=== PATIENT | female | born 1985 | race Caucasian/White ===

== ENCOUNTER → 2018-05-08 14:14 | Outpatient (CLI) | payer OTHER, SELFPAY ==
[2018-05-08 14:40] LABS: Add Manual Diff / Slide Review NO; Appearance Urine UA CLEAR; Basophils Percent Auto 0.5 % (0-2); Bilirubin Urine UA NEGATIVE (NEGATIVE); Color Urine UA YELLOW; Eosinophils Percent Auto 0.8 % (2-4); Glucose Urine UA NEGATIVE (Normal); Hematocrit 40.7 % (36-46); Hemoglobin 13.9 g/dL (12.0-16.0); Ketones Urine UA TRACE (NEGATIVE); Leukocyte Esterase Urine UA NEGATIVE (NEGATIVE); Lymphocytes Percent Auto 29.7 % (25-40); Mean Corpuscular HGB Conc 34.2 % (30-36); Mean Corpuscular Hemoglobin 32.3 PG (26-34); Mean Corpuscular Volume 94.6 fL (80-100); Monocytes Percent Auto 6.3 % (3-14); Neutrophils Absolute Auto 5200 /uL (3000-5900); Neutrophils Percent Auto 62.7 % (50-75); Nitrite Urine UA Negative (Negative); Occult Blood Urine UA TRACE-LYSED (Negative); Platelet Count 268 X10^3/uL (150-400); Protein Urine UA NEGATIVE (Negative); Red Blood Cell Count 4.31 X10^6/uL (4.0-5.2); Red Cell Distribution Width 12.4 % (11.6-14.8); Specific Gravity Urine UA 1.015 (1.000-1.035); Urobilinogen Urine UA 0.2 E.U./dL (0.2); White Blood Cell Count 8.2 X10^3/uL (4.5-11.0)
== END ==
PROVIDERS: Visit Provider Obstetrics & Gynecology
DX: Z3A.01 Less than 8 weeks gestation of pregnancy (principal); Z34.81 Encounter for supervision of other normal pregnancy, first trimester
CPT/HCPCS: 36415; 81003; 85025; 86850; 86900; 86901; 87086

== ENCOUNTER → 2018-07-17 13:57 | Outpatient (CLI) | payer OTHER, SELFPAY | PROVIDERS: PCP Family Medicine; Visit Provider Obstetrics & Gynecology | DX: Z34.82 Encounter for supervision of other normal pregnancy, second trimester (principal) | CPT/HCPCS: 87086 ==

== ENCOUNTER → 2018-09-21 09:40 | Outpatient (CLI) | payer OTHER, SELFPAY ==
[2018-09-21 11:08] LABS: Hematocrit 35.5 % (36-46); Hemoglobin 11.9 g/dL (12.0-16.0)
[2018-09-21 11:58] LABS: GTT (PREG) 1 Hour PP 50gm Dose 144 mg/dL (76-139)
== END ==
PROVIDERS: Visit Provider Obstetrics & Gynecology
DX: Z34.82 Encounter for supervision of other normal pregnancy, second trimester (principal)
CPT/HCPCS: 36415; 82950; 85014; 85018

== ENCOUNTER → 2018-10-29 06:58 | Outpatient (CLI) | payer OTHER, SELFPAY ==
[2018-10-29 09:28] LABS: Glucose 1 Hour Gest 212 mg/dL (76-180)
[2018-10-29 09:36] LABS: Glucose Fasting Gestational 75 mg/dL (76-95)
[2018-10-29 10:27] LABS: Glucose Tol Interp,Gestational INTERPRETATION
[2018-10-29 11:27] LABS: Glucose 2 Hour Gest 166 mg/dL (76-155)
[2018-10-29 14:41] LABS: Glucose 3 Hour Gest 47 mg/dL (76-140)
== END ==
PROVIDERS: Visit Provider Obstetrics & Gynecology
DX: O99.810 Abnormal glucose complicating pregnancy (principal)
CPT/HCPCS: 36415; 82951; 82952

== ENCOUNTER → 2018-11-20 12:33 | Outpatient (CLI) | payer OTHER, SELFPAY ==
[2018-11-21 11:26] LABS: Strep Grp B PCR NEG for Grp B Strep
== END ==
PROVIDERS: Visit Provider Obstetrics & Gynecology
DX: Z34.83 Encounter for supervision of other normal pregnancy, third trimester (principal)
CPT/HCPCS: 87653

== ENCOUNTER 2018-11-22 11:31 | Outpatient (CLI) | payer OTHER, SELFPAY | END 2018-11-22 12:30 | disposition home or self-care (01) | LOC: LABOR 11:43 → OB 11-27 06:53 | PROVIDERS: Visit Provider Obstetrics & Gynecology | DX: O26.893 Other specified pregnancy related conditions, third trimester (principal); Z95.0 Presence of cardiac pacemaker; Z3A.36 36 weeks gestation of pregnancy | CPT/HCPCS: 59025; G0378; G0379 ==

== ENCOUNTER 2018-11-26 14:40 | Observation (INO) | payer OTHER, SELFPAY | END 2018-11-26 15:30 | disposition home or self-care (01) | PROVIDERS: Admitting Provider Obstetrics & Gynecology; Visit Provider Obstetrics & Gynecology | DX: Z34.83 Encounter for supervision of other normal pregnancy, third trimester (principal); Z95.0 Presence of cardiac pacemaker; I49.5 Sick sinus syndrome; Z3A.37 37 weeks gestation of pregnancy | CPT/HCPCS: 59025; G0378; G0379 ==

== ENCOUNTER 2018-11-27 13:49 | Observation (INO) | payer OTHER, SELFPAY | END 2018-11-27 18:30 | disposition home or self-care (01) | PROVIDERS: Admitting Provider Obstetrics & Gynecology; Visit Provider Obstetrics & Gynecology | DX: O47.03 False labor before 37 completed weeks of gestation, third trimester (principal); R10.9 Unspecified abdominal pain; M54.9 Dorsalgia, unspecified; Z95.0 Presence of cardiac pacemaker; Z3A.37 37 weeks gestation of pregnancy | CPT/HCPCS: 59025; 59050; G0378; G0379 ==

== ENCOUNTER → 2018-12-03 15:33 | Outpatient (CLI) | payer OTHER, SELFPAY ==
[2018-12-03 18:15] LABS: Appearance Urine UA CLEAR; Bilirubin Urine UA NEGATIVE (NEGATIVE); Color Urine UA YELLOW; Glucose Urine UA NEGATIVE (Negative); Ketones Urine UA TRACE (NEGATIVE); Leukocyte Esterase Urine UA 1+ (NEGATIVE); Nitrite Urine UA NEGATIVE (Negative); Occult Blood Urine UA 3+ (Negative); Protein Urine UA 1+ (Negative); Specific Gravity Urine UA 1.025 (1.000-1.035); Urobilinogen Urine UA 0.2 E.U./dL (0.2)
[2018-12-03 18:45] LABS: RBC Urine 10-30/HPF (0-5/HPF); Squamous Epithelial Cell Urine 1-5 /HPF (0-5/HPF); WBC Urine 1-5/HPF (0-5/HPF)
[2018-12-03 18:46] LABS: Bacteria Urine Few (2-10); Culture Indicated Urine Specimen Cultured; Mucus Urine 1+ (Negative)
== END ==
PROVIDERS: Visit Provider Obstetrics & Gynecology
DX: M79.669 Pain in unspecified lower leg (principal); R31.9 Hematuria, unspecified
CPT/HCPCS: 81001; 87077; 87086; 87186

== ENCOUNTER → 2018-12-17 16:22 | Outpatient (CLI) | payer OTHER, SELFPAY ==
--- NOTE | 2018-12-17 16:25 | DI.US.S_ITS ---
PROCEDURE: US ABDOMEN LIMITED INDICATIONS: EVAL LUMP ON T UPPER PART OF C-SECT INCISION TECHNIQUE: Real-time focused scanning was performed of the abdomen, with image documentation. COMPARISON: None. FINDINGS: In the area at the upper right aspect of the section incision, there is ill-defined infiltrative fluid and edema. IMPRESSION: Ill-defined nonspecific fluid and edema in the area of palpable abnormality at the upper aspect of the incision. Dictated by: Jono Leon M.D. on 12/17/2018 at 17:06 Approved by: Jono Leon M.D. on 12/17/2018 at 17:08
== END ==
PROVIDERS: PCP Physician Assistant; Visit Provider Obstetrics & Gynecology
DX: O90.0 Disruption of cesarean delivery wound (principal)
CPT/HCPCS: 76705

== ENCOUNTER 2019-02-04 10:30 | Day surgery (SDC) | payer OTHER, SELFPAY ==
[2019-02-04] VITALS (8 sets, daily range): BP systolic 91–126; BP diastolic 58–84; PULSE 50–79; RESP 11–20; TEMP 36.3–36.5; O2SAT 94–99; BMI 33.7
[2019-02-04] MEDS: LACTATED RINGERS 1,000 ML 100 ML IV (10:42)
--- NOTE | 2019-02-04 12:51 | PM.PREOP ---
Pre-operative Note Interval Note History & Physical reviewed/Exam performed by Physician: Yes Changes to H&P: No
--- NOTE | 2019-02-04 12:51 | PM.HP.1 ---
History of Present Illness Date Patient Seen: 02/04/19 Time Patient Seen: 12:51 Chief complaint: [id number] Narrative: Patient is a 33-year-old 5 para 3 who presents for a scar revision Patient underwent a repeat section several months ago. She has had ?spitting suture?. The scar is pulling and causing significant pain every day. She has open areas of the incision this far out from surgery. Patient History Medical History (Updated 11/25/18 @ 16:25 by Renetta Pagan MD) Asthma (Chronic) Compression of intervertebral disc (Chronic) Normally functioning cardiac pacemaker present (Chronic 2010) SSS (sick sinus syndrome) (Chronic 2003) Abnormal Pap smear of cervix (Resolved 2004) Anemia (Resolved) Surgical History (Updated 02/04/19 @ 12:52 by Renetta Pagan MD) History of section (Acute) History of permanent cardiac pacemaker placement (Resolved 2010) Status post LEEP (loop electrosurgical excision procedure) of cervix (Resolved 2004) Status post dilation and curettage (Resolved 09/18/17) Family History (Updated 05/07/18 @ 12:59 by Paris Savage) Father Aortic aneurysm with dissection Hypertension Grandmother Heart attack Mother Liver failure Sister MVA (motor vehicle accident) Sister PCOS (polycystic ovarian syndrome) Social History household members: spouse Smoking Status: Former smoker Family & Social History Family History (Updated 05/07/18 @ 12:59 by Paris Savage) Father Aortic aneurysm with dissection Hypertension Grandmother Heart attack Mother Liver failure Sister MVA (motor vehicle accident) Sister PCOS (polycystic ovarian syndrome) Social History: household members spouse Tobacco & Substance use: Smoking Status Former smoker Meds Home Medications Medication Instructions Recorded Confirmed Type multivitamin [Multiple Vitamins] 1 tab PO QDAY #0 01/03/17 02/04/19 History albuterol 90 mcg/actuation aerosol 2 mcg INHALATION PRN PRN 05/08/18 02/04/19 History inhaler acetaminophen [Tylenol] 1,000 mg PO PRN PRN MDD 3000 02/04/19 02/04/19 History Allergies Allergy/AdvReac Type Severity Reaction Status Date / Time vancomycin [VANCOMYCIN] Allergy Severe RED, Verified 02/04/19 10:42 SWOLLEN, HIVES OVER ENTIRE BODY amoxicillin [AMOXICILLIN] Allergy Intermediate hives Verified 02/04/19 10:42 WASPS Allergy Severe FACIAL Uncoded 02/04/19 10:42 SWELLING Exam Vital Signs (past 8 hours): - 02/04/19 09:40 Temperature 97.7 F Pulse Rate 65 Respiratory Rate 20 Blood Pressure 105/71 Pulse Oximetry 98 Oxygen Delivery Method Room Air Narrative Exam Narrative: HEENT: No thyromegaly, no anterior cervical or supraclavicular lymphadenopathy. Lungs:Clear to auscultation bilaterally, no wheezes. Cardiovascular: Regular rate and rhythm, no murmurs, rubs, or gallops. Abdomen: Retracted scar. No hepatosplenomegaly. No masses palpable. External genitalia: Normal Vagina: Normal Cervix: Normal Bimanual exam: 6 Week size uterus. Mobile. Rectal: No masses. Assessment & Plan Assessment & Plan narrative: Assessment: 33-year-old 5 para 3 with a painful, retracted scar Open areas of the scar, that have not healed Plan: Scar revision The risks, benefits, and alternatives to the procedure were explained to the patient. The risks including bleeding and infection. She understands these risks and agrees to proceed. A full par Q was held and consent form was signed Time Spent With Patient Time with patient: 15-24 minutes
[2019-02-04] MEDS: CEFAZOLIN 2 GM/100 ML FROZ.PIGGY IV (12:53)
[2019-02-04] MEDS: OXYCODONE/ACETAMINOPHEN 5/325 TABLET 1 TAB PO (14:10)
[2019-02-04] MEDS: HYDROMORPHONE 2 MG INJ 0.25 MG IV ×4 (14:11→14:20)
--- NOTE | 2019-02-06 00:50 | PM.GYNOP.1 ---
Operative Date/Time/Diagnoses Date of procedure: 02/05/19 Time of procedure: 13:30 Pre-op diagnosis: Painful, retracted Pfannenstiel scar Holes in the incision from ?spitting suture?. Post-op diagnosis: same Procedure: Procedures Operation Date: 02/04/19 11:45 Actual Procedures Side Surgeon p revision of scar Renetta Pagan MD Indications: Painful, retracted scar of the Pfannenstiel incision Holes in the incision from cysts ?spitting suture?. Surgeon: Renetta Pagan Anesthesia Type: General Operative Notes Findings: Scar tissue retracting the Pfannenstiel scar Multiple holes and the incision Closure Type: primary Specimen(s): none Estimated blood loss (mL): 15 Blood products transfused: none Procedure in detail: After informed consent was obtained, the patient was taken to the operating room where she was placed in the dorsal supine position. After adequate general endotracheal anesthesia was achieved, she was prepped and draped in the usual sterile fashion. A time-out was performed. The previous Pfannenstiel incision with underlying subcutaneous tissue with scar was excised in an elliptical fashion. The underlying subcutaneous tissue with scar was removed with a # 10 blade. Small bleeders were cauterized with the Bovie. The incision was irrigated with 500 cc of sterile saline. The subcutaneous layer was closed with a series of simple interrupted sutures using 3 0 Vicryl. Hemostasis was achieved. The skin was closed with 4 O by us and in a subcuticular fashion. Steri-Strips were placed. An Aquacel dressing was placed. Sponge, lap, and instrument counts were correct x2. The patient tolerated the procedure well, and was taken to PACU in stable condition. Complications: none Post-operative Condition: stable Disposition: PACU Plan for aftercare: Home after recovery
== END 2019-02-04 14:55 | disposition home or self-care (01) ==
PROVIDERS: PCP Physician Assistant; Visit Provider Obstetrics & Gynecology
PROC: (CPT 57410; principal; 2019-02-04 11:45)
DX: L90.5 Scar conditions and fibrosis of skin (principal)
CPT/HCPCS: 13160; J0690; J1100; J1170; J1885; J2250; J2405; J2704; J3010